=== PATIENT | female | born 1965 | race Caucasian/White ===

== ENCOUNTER 2024-03-02 11:34 | Emergency (ER) | payer BC ==
[2024-03-02 11:45] VITALS: BP 167/74; PULSE 93; RESP 18; TEMP 98.4; BMI 22.2
[2024-03-02 13:54] LABS: EPI CELLS 2 /uL (0-25.1); HYALINE CASTS 1 /uL (0-3.1); URINE APPEARANCE TURBID; URINE BACTERIA 120 /uL (0-1359); URINE BILIRUBIN NEGATIVE (NEGATIVE); URINE COLOR YELLOW; URINE GLUCOSE (UA) NEGATIVE (NEGATIVE); URINE KETONE NEGATIVE (NEGATIVE); URINE LEUK ESTERASE 3+ (NEGATIVE); URINE NITRITE NEGATIVE (NEGATIVE); URINE PROTEIN 2+ (NEGATIVE); URINE UROBILINOGEN 0.2 mg/dL (0.2-1.0); URINE WBC 5125 /uL (0-25.8)
[2024-03-02 13:59] LABS: URINE RBC 334.1 /uL (0-23.9); YEAST NEGATIVE (NEGATIVE)
== END 2024-03-02 16:07 | disposition home or self-care (01) ==
LOC: JER 11:34
DX: R30.0 Dysuria (principal)
CPT/HCPCS: 36415; 81003; 87086; 87186; 87491; 87591; 87661; 99283-25